=== PATIENT | female | born 1970 | race Caucasian/White ===

== ENCOUNTER 2017-07-18 09:42 | Emergency (ER) | payer OTHER ==
--- NOTE | 2017-07-18 10:18 | EDPHY ---
H & P Stated Complaint: had bad cold x 1 wk w/cough; feels SOB - Personal History LMP (Females 10-55): Hysterectomy Current Tetanus Diphtheria and Acellular Pertussis (TDAP): Yes - Social History Smoking Status: Never smoked Time Seen by Provider: 07/18/17 10:04 HPI/ROS: CHIEF COMPLAINT: Dyspnea "I just can not catch my breath" HISTORY OF PRESENT ILLNESS: 47-year-old female generally healthy has been experiencing upper respiratory infection like symptoms for the past 1 week, notes that she has been feeling better however since last evening she notes dyspnea feeling that she"can not catch her breath and". No prior history of similar. Nonsmoker. No drug use. No chest pain. No abdominal pain. No syncope or near syncope. REVIEW OF SYSTEMS: A ten point review of systems was performed and is negative with the exception of the items mentioned in the HPI PAST MEDICAL & SURGICAL HISTORY: No history of coronary artery disease or coagulopathy SOCIAL HISTORY: Nonsmoker. No drug use. Works at [employer]. FAMILY HISTORY: no family history of coronary artery disease, sudden unexplained , coagulopathy PHYSICAL EXAM (Prior to examination, patient consented to physical exam, hands were washed and my usual and customary physical exam procedures followed) 1) GENERAL: Well-developed, well-nourished, alert and oriented. Appears to be in no acute distress. 2) HEAD: Normocephalic, atraumatic 3) HEENT: Pupils equal, round, reactive to light bilaterally. Sclera anicteric. Nasopharynx, oropharynx, clear, no lesions. Ears bilaterally with normal tympanic membranes. 4) NECK: Full range of motion, no meningeal signs. No carotid bruit 5) LUNGS: Clear auscultation bilaterally, no wheezes, no rhonchi, no retractions. 6) HEART: Regular rate and rhythm, no murmur, no heave, no gallop. 7) ABDOMEN: No guarding, no rebound, no focal tenderness, negative McBurney's, negative Kohler's, negative Rovsing's, negative peritoneal sign, negative Homans no palpable cord 8) MUSCULOSKELETAL: Moving all extremities, no focal areas of tenderness, no obvious trauma. No peripheral edema or discoloration. 9) BACK: No CVA tenderness, no midline vertebral tenderness, no fluctuance, no step-off, no obvious trauma, no visual or palpable abnormality. 10) SKIN: No rash, no petechiae. 11) Psychiatric: Patient is oriented X 3, there is no agitation. DIFFERENTIAL DIAGNOSIS: In no particular include but limited to pneumonia, pneumothorax, pulmonary embolus, GA (Fransisco,Charly Aurea) Constitutional: Initial Vital Signs Temperature (C) 36.7 C 07/18/17 09:45 Heart Rate 69 07/18/17 09:45 Respiratory Rate 18 07/18/17 09:45 Blood Pressure 111/71 07/18/17 09:45 O2 Sat (%) 98 07/18/17 09:45 O2 Delivery Mode Room Air Allergies/Adverse Reactions: acetaminophen [From Percocet] Allergy (Mild, Verified 07/18/17 09:45) GI oxycodone [From Percocet] Allergy (Mild, Verified 07/18/17 09:45) GI Sulfa (Sulfonamide Antibiotics) Allergy (Mild, Verified 07/18/17 09:45) GI tetracycline Allergy (Mild, Verified 07/18/17 09:45) GI Home Medications: Medication Instructions Recorded Albuterol [Proventil Inhaler HFA 1 - 2 puffs IH Q4PRN PRN #1 mdi 07/18/17 (*)] predniSONE [Prednisone] 20 mg PO DAILY #9 tablet 07/18/17 Medical Decision Making - Diagnostics Imaging Results: Imaging Impressions Chest X-Ray 07/18/17 10:14 Impression: Normal chest x-ray. ED Course/Re-evaluation: 10:17 a.m.: Care of patient under supervision of secondary supervising physician Dr Pena . 1 p.m.: Patient was re-evaluated with serial examinations. Most recent exam at this time She is given a DuoNeb treatment and notes improvement in her symptoms. She is also given Afrin nasal spray noting difficulty breathing through her nose. This provided temporary relief as well. I reviewed her laboratory studies. I think that GA is less than likely in the presence of normal sinus EKG, normal troponin and symptomatic for greater than 8 hr. I think that pulmonary embolus is less than likely in this patient in the presence of low to medium risk factors, negative D-dimer which I think adequately excludes pulmonary embolus. I do not think that CT imaging is indicated. In addition her chest x-ray shows no infiltrate. She remains with normal saturations, breathing comfortably, speaking full sentences. I discussed her case with Dr. Faizan Pena in the ER. Plan will be discharge home with albuterol and prednisone. Patient feels comfortable with this plan. Usual and customary discharge precautions and instructions provided. (Charly Moody) I did not see this patient while she was in the emergency. However her care was discussed with the PA while the patient was in the department. I agree with treatment plan and management (Faizan Pena) - Data Points Laboratory Results: Laboratory Results 07/18/17 10:24 07/18/17 10:24 07/18/17 07/18/17 07/18/17 10:24 10:24 10:24 WBC RBC Hgb Hct MCV MCH MCHC RDW Plt Count MPV Neut % (Auto) Lymph % (Auto) [place] % (Auto) Eos % (Auto) Baso % (Auto) Nucleat RBC Rel Count Absolute Neuts (auto) Absolute Lymphs (auto) Absolute Monos (auto) Absolute Eos (auto) Absolute Basos (auto) Absolute Nucleated RBC Immature Gran % Immature Gran # D-Dimer < 0.27 ug/mLFEU ug/mLFEU (0.00-0.50) Sodium 141 mEq/L mEq/L (135-145) Potassium 4.3 mEq/L mEq/L (3.5-5.2) Chloride 107 mEq/L mEq/L (97-110) Carbon Dioxide 20 mEq/l L mEq/l (22-31) Anion Gap 14 mEq/L mEq/L (8-16) BUN 12 mg/dL mg/dL (7-23) Creatinine 0.5 mg/dL L mg/dL (0.6-1.0) Estimated GFR > 60 Glucose 88 mg/dL mg/dL (70-100) Calcium 8.8 mg/dL mg/dL (8.5-10.4) Troponin I < 0.012 ng/mL ng/mL (0.000-0.034) Beta HCG, Qual NEGATIVE 07/18/17 10:24 WBC 5.42 10^3/uL 10^3/uL (3.80-9.50) RBC 4.62 10^6/uL 10^6/uL (4.18-5.33) Hgb 14.8 g/dL g/dL (12.6-16.3) Hct 42.8 % % (38.0-47.0) MCV 92.6 fL fL (81.5-99.8) MCH 32.0 pg pg (27.9-34.1) MCHC 34.6 g/dL g/dL (32.4-36.7) RDW 13.1 % % (11.5-15.2) Plt Count 178 10^3/uL 10^3/uL (150-400) MPV 10.5 fL fL (8.7-11.7) Neut % (Auto) 58.4 % % (39.3-74.2) Lymph % (Auto) 31.9 % % (15.0-45.0) [place] % (Auto) 7.4 % % (4.5-13.0) Eos % (Auto) 1.7 % % (0.6-7.6) Baso % (Auto) 0.4 % % (0.3-1.7) Nucleat RBC Rel Count 0.0 % % (0.0-0.2) Absolute Neuts (auto) 3.17 10^3/uL 10^3/uL (1.70-6.50) Absolute Lymphs (auto) 1.73 10^3/uL 10^3/uL (1.00-3.00) Absolute Monos (auto) 0.40 10^3/uL 10^3/uL (0.30-0.80) Absolute Eos (auto) 0.09 10^3/uL 10^3/uL (0.03-0.40) Absolute Basos (auto) 0.02 10^3/uL 10^3/uL (0.02-0.10) Absolute Nucleated RBC 0.00 10^3/uL 10^3/uL (0-0.01) Immature Gran % 0.2 % % (0.0-1.1) Immature Gran # 0.01 10^3/uL 10^3/uL (0.00-0.10) D-Dimer Sodium Potassium Chloride Carbon Dioxide Anion Gap BUN Creatinine Estimated GFR Glucose Calcium Troponin I Beta HCG, Qual Medications Given: Discontinued Medications Albuterol/Ipratropium (Duoneb) 3 ml IH EDNOW ONE Stop: 07/18/17 11:23 Last Admin: 07/18/17 11:26 Dose: 3 ml Oxymetazoline HCl (Afrin Nasal [place]) 2 sprays EACHNARE EDNOW ONE Stop: 07/18/17 12:19 Last Admin: 07/18/17 12:29 Dose: 2 spray Prednisone (Prednisone) 60 mg PO EDNOW ONE Stop: 07/18/17 12:37 Last Admin: 07/18/17 12:43 Dose: 60 mg Departure - Departure Disposition: Home, Routine, Self-Care Clinical Impression: Dyspnea Qualifiers: Dyspnea type: unspecified Qualified Code(s): R06.00 - Dyspnea, unspecified Condition: Good Instructions: Dyspnea (ED) Additional Instructions: Seek medical attention if you develop chest pain, if you develop new or worsening shortness of breath, or any other symptoms that concern you. Referrals: Adilia Newman MD [[facility] [place]] - 2-3 days, call for appt. Prescriptions: Albuterol [Proventil Inhaler HFA (*)] 1 - 2 puffs IH Q4PRN PRN #1 mdi PRN Reason: Cough, Moderate predniSONE [Prednisone] 20 mg PO DAILY #9 tablet
--- NOTE | 2017-07-18 10:26 | CPEKG ---
Heart Rate: 62 RR Interval: 968 P-R Interval: 152 QRSD Interval: 80 QT Interval: 444 QTC Interval: 451 P [place]: 44 QRS [place]: 26 T Wave [place]: 37 EKG Severity - BORDERLINE ECG - EKG Impression: SINUS RHYTHM EKG Impression: LOW VOLTAGE THROUGHOUT Electronically Signed By: Faizan Pena 18-Jul-2017 17:03:53
[2017-07-18 10:31] LABS: PLATELET COUNT 178 10^3/uL (150-400)
[2017-07-18] MEDS ORDERED: IPRATROPIUM/ALBUTEROL 3 ML DEYVIAL IH ONE (11:22)
[2017-07-18] MEDS ORDERED: OXYMETAZOLINE 30 ML NASAL SPRAY EACHNARE ONE (12:18)
[2017-07-18] MEDS ORDERED: predniSONE 20 MG TAB PO ONE (12:36)
[2017-07-18 13:24] VITALS: BP 126/75; PULSE 77; RESP 20; TEMP 98.2; O2SAT 96
== END 2017-07-18 13:24 | disposition home or self-care (01) ==
DX: R06.00 Dyspnea, unspecified (principal)
CPT/HCPCS: J7512

== ENCOUNTER 2017-11-13 11:09 | Emergency (ER) | payer OTHER ==
[2017-11-13] MEDS ORDERED: HYDROCODONE/APAP 5/325 TAB PO ONE (12:41)
[2017-11-13] MEDS ORDERED: IBUPROFEN 600 MG TAB PO ONE (12:41)
[2017-11-13] MEDS ORDERED: LIDOCAINE 4%/MENTHOL 1% PATCH TD ONE (12:42)
--- NOTE | 2017-11-13 12:42 | EDPHY ---
H & P Time Seen by Provider: 11/13/17 12:24 HPI/ROS: CHIEF COMPLAINT: Back injury HISTORY OF PRESENT ILLNESS: Yesterday was carrying boxes down the stairs and slipped landing on her back directly on the stairs. She fell down a couple of stairs but did not hit her head and did not lose consciousness. Pain is severe today and worse with any movement. It is midline and not associated with numbness or tingling in feet or incontinence. She went to urgent care apparently had microscopic hematuria and was referred here. She denies gross hematuria. REVIEW OF SYSTEMS: Eye: no change in vision ENT: no sore throat Cardiac: no chest pain or syncope Pulmonary: no cough or SOB Abdomen: no vomiting, diarrhea; ongoing intermittent abdominal pain Musculoskeletal: HPI Skin: Bruising on her back Neuro: no headache Constitutional: no fever : no hematuria A comprehensive 10 point review of systems is otherwise negative aside from elements mentioned in the history of present illness. PAST MEDICAL HISTORY: Hysterectomy, ongoing abdominal symptoms with negative EGD on Tuesday. Social history: Here with fiancee General Appearance: Alert and conversant, cooperative. Eyes: No scleral icterus. ENT, Mouth: Normal mucous membranes. Respiratory: Normal respiratory effort, breath sounds equal, lungs are clear to auscultation. Cardiovascular: Regular rate and rhythm. Gastrointestinal: Abdomen is soft and non tender. Nontender over the spleen. Neurological: Alert, face symmetric, normal motor and sensory in extremities. Toes downgoing and no clonus. Skin: Bruising over the upper mid lumbar spine. Musculoskeletal: No extremity bony tenderness, pelvis is stable, lower thoracic and upper lumbar spinal tenderness. She does not have any CVA tenderness or tenderness over the flank. Psychiatric: Not agitated. Emergency Department course/MDM: Not hypotensive and no gross hematuria, nontender over the flank, I think acute renal injury is unlikely. Lumbar and thoracic spine x-rays discussed and consented. Oral ibuprofen, hydrocodone which she can take and has previously, lidocaine patch. 1325: Results reviewed with the patient. Patient referred back to her primary care provider. She can get consultation with service specialist if needed through her PCP. Warned will take 6 weeks typically for fracture healing. Pain may last longer than that. Patient is ambulatory at discharge with adequate pain control. Smoking Status: Never smoked Constitutional: Initial Vital Signs Temperature (C) 36.6 C 11/13/17 11:28 Heart Rate 70 11/13/17 11:28 Respiratory Rate 16 11/13/17 11:28 Blood Pressure 120/74 11/13/17 11:28 O2 Sat (%) 93 11/13/17 11:28 O2 Delivery Mode Room Air Allergies/Adverse Reactions: acetaminophen [From Percocet] Allergy (Mild, Verified 11/13/17 11:33) GI oxycodone [From Percocet] Allergy (Mild, Verified 11/13/17 11:33) GI Sulfa (Sulfonamide Antibiotics) Allergy (Mild, Verified 11/13/17 11:33) GI tetracycline Allergy (Mild, Verified 11/13/17 11:33) GI Home Medications: Medication Instructions Recorded Albuterol [Proventil Inhaler HFA 1 - 2 puffs IH Q4PRN PRN #1 mdi 07/18/17 (*)] predniSONE [Prednisone] 20 mg PO DAILY #9 tablet 07/18/17 Hydrocodone/APAP 5/325 [[place] 1 tab PO Q4-6PRN PRN #11 tab 11/13/17 5/325] Lidocaine [Lidoderm] 1 each TP DAILY #7 adh..patch 11/13/17 Omeprazole Magnesium 11/13/17 Medical Decision Making - Diagnostics Imaging Results: Imaging Impressions Lumbar Spine X-Ray 11/13/17 12:41 Impression: Thoracic spine negative for fracture with degenerative changes seen. Lumbar Spine, 2 views History: Pain, post trauma Findings: Lumbar alignment is anatomic. Disk spaces are well maintained. Facet hypertrophy extends from L3-L4 to the L5-S1 level. No fracture is identified. Impression: Negative for fracture.. ADDENDUM: 11/13/17 1322 Impression: Left spinous process fractures, Dr. Street is aware of this finding. Thoracic Spine X-Ray 11/13/17 12:41 Impression: Thoracic spine negative for fracture with degenerative changes seen. Lumbar Spine, 2 views History: Pain, post trauma Findings: Lumbar alignment is anatomic. Disk spaces are well maintained. Facet hypertrophy extends from L3-L4 to the L5-S1 level. No fracture is identified. Impression: Negative for fracture.. ADDENDUM: 11/13/17 1322 Impression: Left spinous process fractures, Dr. Street is aware of this finding. Imaging: Discussed imaging studies w/ inbound call center agent Radiologist, I viewed and interpreted images myself Differential Diagnosis: Differential considered including but not limited to vertebral fracture, spinous process fracture, flank contusion, renal injury, spinal cord injury. - Data Points Medications Given: Discontinued Medications Hydrocodone Bitart/Acetaminophen ([place] 5/325) 1 tab PO EDNOW ONE Stop: 11/13/17 12:42 Last Admin: 11/13/17 13:28 Dose: 1 tab Ibuprofen (Motrin) 600 mg PO EDNOW ONE Stop: 11/13/17 12:42 Last Admin: 11/13/17 13:28 Dose: 600 mg Miscellaneous Medication (Icy Hot Lidocaine/Menthol 4%/1% Patch) 1 patch TD EDNOW ONE Stop: 11/13/17 12:43 Last Admin: 11/13/17 13:29 Dose: 1 patch Departure - Departure Disposition: Home, Routine, Self-Care Clinical Impression: Fracture of spinous process of lumbar vertebra Qualifiers: Encounter type: initial encounter Fracture type: closed Qualified Code(s): S32.009A - Unspecified fracture of unspecified lumbar vertebra, initial encounter for closed fracture Condition: Good Instructions: Hydrocodone/Acetaminophen (By mouth), Ibuprofen (By mouth) Referrals: MARKUS CURTIS [Primary Care Provider] - As per Instructions Prescriptions: Hydrocodone/APAP 5/325 [[place] 5/325] 1 tab PO Q4-6PRN PRN #11 tab PRN Reason: For Pain Lidocaine [Lidoderm] 1 each TP DAILY #7 adh..patch
[2017-11-13 14:25] VITALS: BP 121/75
[2017-11-13] MEDS ORDERED: PATCH REMOVAL 1 EA PATCH TD SCH (21:00)
== END 2017-11-13 14:26 | disposition home or self-care (01) ==
DX: S32.009A Unspecified fracture of unspecified lumbar vertebra, initial encounter for closed fracture (principal); W10.8XXA Fall (on) (from) other stairs and steps, initial encounter; Y99.8 Other external cause status; Y93.89 Activity, other specified

== ENCOUNTER → 2017-12-21 | Outpatient (CLI) | payer OTHER | DX: K82.8 Other specified diseases of gallbladder (principal) | CPT/HCPCS: 78227; A9537; J2805 ==

== ENCOUNTER 2018-04-25 18:04 | Observation (INO) | payer OTHER ==
[2018-04-25] MEDS ORDERED: NS 1,000 ML IV ONE (18:28)
--- NOTE | 2018-04-25 18:50 | EDPHY ---
H & P Stated Complaint: l lower abd pain loose stools/colon abcess 2013 ([facility]) Time Seen by Provider: 04/25/18 18:18 HPI/ROS: CHIEF COMPLAINT: Left lower quadrant pain HISTORY OF PRESENT ILLNESS: The patient presents to the ED with complaints of progressive left lower quadrant pain over the past 2 days. The patient reports a prior history of intra-abdominal abscess requiring surgery 4 years ago. The patient believes that she had a per for diverticuli.. Patient states that her symptoms feel similar. She denies any fever or vomiting. She does report nausea. She does report she has been having some loose stool. The patient currently rates her pain is an 8/10. She the states is worsened with movement and palpation. The patient did have a follow-up sigmoidoscopy at some point following her surgery for symptoms of recurrent pain which were negative. She reports her pain today is far worse than the pain she was experiencing at that point time. REVIEW OF SYSTEMS: A comprehensive 10 point review of systems is otherwise negative aside from elements mentioned in the history of present illness. Source: Patient Exam Limitations: No limitations - Personal History LMP (Females 10-55): Hysterectomy Current Tetanus Diphtheria and Acellular Pertussis (TDAP): Yes - Medical/Surgical History Hx Asthma: No Hx Chronic Respiratory Disease: No Hx Diabetes: No Hx Cardiac Disease: No Hx Renal Disease: No Hx Cirrhosis: No Hx Alcoholism: No Hx HIV/AIDS: No Hx Splenectomy or Spleen Trauma: No Other PMH: colon abcess/hysterectomy - Social History Smoking Status: Never smoked - Physical Exam Exam: General Appearance: Alert, no distress Eyes: Pupils equal and round no pallor or injection ENT, Mouth: Mucous membranes moist Respiratory: There are no retractions, lungs are clear to auscultation Cardiovascular: Regular rate and rhythm Gastrointestinal: Tenderness to palpation in the left lower quadrant with mild rebound, no peritoneal signs Neurological: 5/5 strength noted all 4 extremities Skin: Warm and dry, no rashes Musculoskeletal: Neck is supple nontender Extremities: symmetrical, full range of motion Constitutional: Initial Vital Signs Temperature (C) 36.4 C 04/25/18 18:11 Heart Rate 81 04/25/18 18:11 Respiratory Rate 18 04/25/18 18:11 Blood Pressure 126/73 H 04/25/18 18:11 O2 Sat (%) 96 04/25/18 18:11 O2 Delivery Mode Room Air Allergies/Adverse Reactions: acetaminophen [From Percocet] Allergy (Mild, Verified 04/25/18 18:10) GI oxycodone [From Percocet] Allergy (Mild, Verified 04/25/18 18:10) GI Sulfa (Sulfonamide Antibiotics) Allergy (Mild, Verified 04/25/18 18:10) GI tetracycline Allergy (Mild, Verified 04/25/18 18:10) GI Home Medications: Medication Instructions Recorded NK [No Known Home Meds] 04/25/18 Medical Decision Making - Diagnostics Imaging Results: Imaging Impressions Abdomen CT 04/25/18 19:17 Impression: 1. Thickening of the proximal to mid sigmoid colon left iliac fossa just proximal to the bowel anastomotic sutures. This could represent postoperative thickening. If there was previous resection for cancer then recurrence cannot be ruled out. If indicated, consider correlation with sigmoidoscopy at some point. 2. 3 cm fluid collection left lower pelvis with thin catherine. This is adjacent to the mid to distal sigmoid colon. Possibilities include postoperative seroma or lymphocele versus possibility of left adnexal cyst. Chronic abscess is felt to be possible but less likely considering surgery was about 5 years ago by patient history. 3. Small hiatal hernia. Findings discussed with Rigoberto Lyman M.D. at 19:56 hour, 04/25/2018. ED Course/Re-evaluation: The patient presents to the ED with a 2 day history of progressive left lower quadrant pain. The patient does have a history of intra-abdominal abscess from a perforated diverticuli. The patient was noted to have a slight leukocytosis. She has fairly significant tenderness to palpation left lower quadrant. CT scan of the abdomen demonstrates nonspecific findings in the area of her prior surgery. The patient does have a 3 cm fluid collection noted in the left lower pelvis of uncertain significance. The patient did receive a half a mg of Dilaudid in the emergency department. Given the patient's CT findings I did consult with Dr. Nair from General surgery. She is evaluating the patient in the department at 8:45 p.m.. She evaluated the patient will admit her to the hospital for IV antibiotic treatment for presumed colitis. Differential Diagnosis: Differential diagnosis considered includes diverticulitis, perforation, abscess , gastroenteritis - Data Points Laboratory Results: Laboratory Results 04/25/18 19:10 04/25/18 19:10 04/25/18 04/25/1804/25/18 19:13 19:10 19:10 WBC RBC Hgb POC Hgb 17.3 gm/dL H gm/dL (12.6-16.3) Hct POC Hct 51 % H % (38-47) MCV MCH MCHC RDW Plt Count MPV Neut % (Auto) Lymph % (Auto) [place] % (Auto) Eos % (Auto) Baso % (Auto) Nucleat RBC Rel Count Absolute Neuts (auto) Absolute Lymphs (auto) Absolute Monos (auto) Absolute Eos (auto) Absolute Basos (auto) Absolute Nucleated RBC Immature Gran % Immature Gran # POC Sodium 140 mEq/L mEq/L (135-145) Sodium 136 mEq/L mEq/L (135-145) POC Potassium 3.7 mEq/L mEq/L (3.3-5.0) Potassium 4.3 mEq/L mEq/L (3.5-5.2) POC Chloride 102 mEq/L mEq/L (97-110) Chloride 105 mEq/L mEq/L (97-110) Carbon Dioxide 20 mEq/l L mEq/l (22-31) Anion Gap 11 mEq/L mEq/L (6-14) POC BUN 7 mg/dL mg/dL (7-23) BUN 9 mg/dL mg/dL (7-23) Creatinine 0.6 mg/dL mg/dL (0.6-1.0) POC Creatinine 0.6 mg/dL mg/dL (0.6-1.0) Estimated GFR > 60 Glucose 81 mg/dL mg/dL (70-100) POC Glucose 81 mg/dL mg/dL (70-100) Calcium 8.8 mg/dL mg/dL (8.5-10.4) Total Bilirubin 1.1 mg/dL mg/dL (0.1-1.4) Conjugated Bilirubin 0.2 mg/dL mg/dL (0.0-0.5) Unconjugated Bilirubin 0.9 mg/dL mg/dL (0.0-1.1) AST 25 IU/L IU/L (14-46) ALT 28 IU/L IU/L (9-52) Alkaline Phosphatase 62 IU/L IU/L (38-126) Total Protein 7.2 g/dL g/dL (6.3-8.2) Albumin 4.5 g/dL g/dL (3.5-5.0) Lipase 72 IU/L IU/L (23-300) Beta HCG, Qual NEGATIVE 04/25/18 19:10 WBC 11.40 10^3/uL H 10^3/uL (3.80-9.50) RBC 4.71 10^6/uL 10^6/uL (4.18-5.33) Hgb 15.4 g/dL g/dL (12.6-16.3) POC Hgb Hct 46.2 % % (38.0-47.0) POC Hct MCV 98.1 fL fL (81.5-99.8) MCH 32.7 pg pg (27.9-34.1) MCHC 33.3 g/dL g/dL (32.4-36.7) RDW 13.2 % % (11.5-15.2) Plt Count 187 10^3/uL 10^3/uL (150-400) MPV 10.6 fL fL (8.7-11.7) Neut % (Auto) 76.7 % H % (39.3-74.2) Lymph % (Auto) 14.5 % L % (15.0-45.0) [place] % (Auto) 7.3 % % (4.5-13.0) Eos % (Auto) 0.9 % % (0.6-7.6) Baso % (Auto) 0.2 % L % (0.3-1.7) Nucleat RBC Rel Count 0.0 % % (0.0-0.2) Absolute Neuts (auto) 8.75 10^3/uL H 10^3/uL (1.70-6.50) Absolute Lymphs (auto) 1.65 10^3/uL 10^3/uL (1.00-3.00) Absolute Monos (auto) 0.83 10^3/uL H 10^3/uL (0.30-0.80) Absolute Eos (auto) 0.10 10^3/uL 10^3/uL (0.03-0.40) Absolute Basos (auto) 0.02 10^3/uL 10^3/uL (0.02-0.10) Absolute Nucleated RBC 0.00 10^3/uL 10^3/uL (0-0.01) Immature Gran % 0.4 % % (0.0-1.1) Immature Gran # 0.05 10^3/uL 10^3/uL (0.00-0.10) POC Sodium Sodium POC Potassium Potassium POC Chloride Chloride Carbon Dioxide Anion Gap POC BUN BUN Creatinine POC Creatinine Estimated GFR Glucose POC Glucose Calcium Total Bilirubin Conjugated Bilirubin Unconjugated Bilirubin AST ALT Alkaline Phosphatase Total Protein Albumin Lipase Beta HCG, Qual Medications Given: Discontinued Medications Hydromorphone HCl (Dilaudid) 0.5 mg IVP EDNOW ONE Stop: 04/25/18 20:01 Last Admin: 04/25/18 20:06 Dose: 0.5 mg Sodium Chloride (Ns) 1,000 mls @ 0 mls/hr IV EDNOW ONE; Wide Open PRN Reason: Protocol Stop: 04/25/18 18:29 Last Admin: 04/25/18 19:10 Dose: 1,000 mls Point of Care Test Results: Chemistry 04/25/18 19:13 POC Sodium 140 mEq/L mEq/L (135-145) POC Potassium 3.7 mEq/L mEq/L (3.3-5.0) POC Chloride 102 mEq/L mEq/L (97-110) POC BUN 7 mg/dL mg/dL (7-23) POC Creatinine 0.6 mg/dL mg/dL (0.6-1.0) POC Glucose 81 mg/dL mg/dL (70-100) ISTAT H&H 04/25/18 19:13 POC Hgb 17.3 gm/dL H gm/dL (12.6-16.3) POC Hct 51 % H % (38-47) Departure - Departure Disposition: [facility] Acute Clinical Impression: Colitis Abdominal pain Qualifiers: Abdominal location: left lower quadrant Qualified Code(s): R10.32 - Left lower quadrant pain Condition: Good Referrals: CANDACE VIRGEN [Primary Care Provider] - As per Instructions
[2018-04-25 19:19] LABS: PLATELET COUNT 187 10^3/uL (150-400)
[2018-04-25] MEDS ORDERED: IOPAMIDOL (ISOVUE-300) 100 ML BTL ONE (19:21)
[2018-04-25] MEDS ORDERED: HYDROmorphONE/DILAUDID 2 MG/ML INJ IVP ONE (20:00)
[2018-04-25] MEDS ORDERED: HYDROmorphONE/DILAUDID 1 MG/ML INJ ONE (20:03)
[2018-04-25] MEDS ORDERED: PROMETHAZINE HCL 25 MG/ML INJ IVP PRN (20:48)
[2018-04-25] MEDS ORDERED: ONDANSETRON DISINTEGRATING 4 MG TAB PO PRN (20:48)
[2018-04-25] MEDS: ONDANSETRON 4 MG/2 ML VIAL IVP PRN ×2 (20:53→23:16)
[2018-04-25] MEDS ORDERED: FLUCONAZOLE 150 MG TAB PO ONE (20:54)
[2018-04-25] MEDS: D5W 1/2 NS W/ 20 KCl/L 1,000 ML IV SCH (22:42)
[2018-04-26] MEDS: ONDANSETRON 4 MG/2 ML VIAL IVP PRN (05:17)
--- NOTE | 2018-04-26 05:50 | GCON ---
DATE OF CONSULTATION: 04/25/2018 CHIEF COMPLAINT: Left lower quadrant abdominal pain. HISTORY OF PRESENT ILLNESS: The patient is a 47-year-old woman who has a history of a partial sigmoid colectomy almost 4 years ago to the date for diverticulitis with a "lemon-sized abscess." Approximately 1 year after that she had some increased abdominal pain and had a flex sig which was reportedly normal. Today she was at work and had increasing left-sided abdominal pain that felt exactly how she recalls her symptoms 4 years ago. She denies fevers or chills. She has had no appetite today. Today, she has had multiple small caliber stools. No blood in her stool. She has no difficulty with urination. She has not been around sick contacts. She is not nauseated nor has she vomited. She passed flatus this morning. PAST MEDICAL HISTORY: None. PAST SURGICAL HISTORY: As above and hysterectomy. SOCIAL HISTORY: She is currently employed. She has never smoked. ALLERGIES: Percocet, sulfa, tetracycline. HOME MEDICATIONS: None. FAMILY HISTORY: No history of colon cancer. REVIEW OF SYSTEMS: Per HPI. PHYSICAL EXAMINATION: VITAL SIGNS: 36.4, 81, 23/73, 16, 95% on room air. GENERAL: Pleasant woman, appears slightly ill, sitting up on gurney. HEENT: Normocephalic. No gross hearing deficits. Mucous membranes moist. Pupils equal and round. No scleral icterus. LUNGS: Clear to auscultation bilaterally. No increased work of breathing. CARDIAC: Regular rate. ABDOMEN : Bowel sounds present. She is soft. She is tender in the left lower quadrant. There is no rebound or guarding. She has a well-healed midline scar without evidence hernia. MUSCULOSKELETAL: Normal nails. SKIN: Warm and dry. PSYCH: Mood and affect normal. NEURO: Grossly intact. RESULTS REVIEWED: Her white blood cell count is 11,000. Her electrolytes are within normal limits. I personally reviewed the CT images, and she does have inflammation of her sigmoid colon. There is a cystic structure in the lower pelvis distal to the anastomosis. IMPRESSION AND PLAN: The patient is a 47-year-old woman with a history of diverticulitis requiring surgery. She now has new pain in the left lower quadrant with an elevated white count and inflammation on her CT scan. I will admit her to the hospital. She will be n.p.o. except for sips and chips. I will have her on Levaquin and Flagyl. We will watch her closely. We may have GI comment on her colitis. I have also ordered stool studies. /[id number]/MODL MTDD
[2018-04-26 05:51] LABS: PLATELET COUNT 187 10^3/uL (150-400)
[2018-04-26] MEDS ORDERED: NS 1,000 ML IV ONE (08:11)
[2018-04-26] MEDS: D5W 1/2 NS W/ 20 KCl/L 1,000 ML IV SCH (09:25)
--- NOTE | 2018-04-26 10:03 | SOAPPROG ---
SOAP Progress Note Assessment/Plan: Assessment/Plan: 47yo F admitted with LLQ pain, CT with inflammation consistent with colitis Advance to clear liquid diet Levo/Flagyl Leukocytosis improving No flatus, hypoactive BS Stool studies pending Hypotension this am - 1L NS bolus Dispo: inpt until return of bowel function and tolerating diet. Seen c Dr. Nair S: pain feels like it is returning this am, 510. Not passing flatus. Not hungry O: Well-developed well-nourished woman in no acute distress Clear to auscultation bilaterally, no increased work of breathing Cleared regular rate and rhythm Hypoactive bowel sounds throughout, soft, nondistended, tenderness to deep palpation left lower quadrant. No rebound or guarding Mood and affect normal Neuro grossly intact 04/26/18 10:59 Objective: Vital Signs Temp Pulse Resp BP Pulse Ox 36.9 C 75 18 87/51 L 94 04/26/18 09:22 04/26/18 09:22 04/26/18 07:51 04/26/18 09:22 04/26/18 07:51 Laboratory Results 04/26/18 05:36 04/26/18 05:36 04/25/18 04/26/18 04/27/18 05:59 05:59 05:59 Intake Total 1070 Balance 1070 ICD10 Worksheet Patient Problems: Problems Problem Status Onset Abdominal pain Acute Colitis Acute
--- NOTE | 2018-04-26 16:20 | ASMTCMCOM ---
CM Note CM Note Notes: Reviewed chart, pt admitted for lower left quadrant pain, similar to the time she had an abscess. Pt works and lives independently. Anticipate she will dc home when medically stable, CM available for any changes. DC Plan: Independent Date Signed: 04/26/2018 04:19 PM Electronically Signed By:Dana Brasher RN
[2018-04-26] MEDS: ACETAMINOPHEN 325 MG TAB PO PRN (20:23)
[2018-04-26] MEDS ORDERED: ALBUMIN 5% 500 ML IV ONE (23:30)
[2018-04-27] MEDS: D5W 1/2 NS W/ 20 KCl/L 1,000 ML IV SCH (05:48)
[2018-04-27 07:49] VITALS: BP 110/70
--- NOTE | 2018-04-27 08:11 | SOAPPROG ---
SOAP Progress Note Assessment/Plan: Assessment: 47 year old woman admitted for colitis Much improved this am Hungry Can discharge if pain controlled after eating general diet S: Headache - usually resolves with food and rest O Plan: 04/27/18 14:40 Objective: Vital Signs Temp Pulse Resp BP Pulse Ox 37.0 C 67 16 110/70 92 04/27/18 07:48 04/27/18 07:48 04/27/18 07:48 04/27/18 07:48 04/27/18 07:48 Laboratory Results 04/26/18 05:36 04/26/18 05:36 04/26/18 04/27/18 04/28/18 05:59 05:59 05:59 Intake Total 1070 1800 Balance 1070 1800 Physical Exam - Physical Exam General Appearance: WD/WN, alert, no apparent distress EENT: No scleral icterus (R), No scleral icterus (L), No hearing deficit Respiratory: chest non-tender, lungs clear Cardiac/Chest: regular rate, rhythm Abdomen: normal bowel sounds, non-tender, soft, other (No longer tender LLQ) Skin: normal color, warm/dry ICD10 Worksheet Patient Problems: Problems Problem Status Onset Abdominal pain Acute Colitis Acute
[2018-04-27] MEDS: ACETAMINOPHEN 325 MG TAB PO PRN (08:27)
[2018-04-27 08:28] LABS: PLATELET COUNT 153 10^3/uL (150-400)
[2018-04-27] MEDS ORDERED: metroNIDAZOLE 500 MG TAB PO SCH (14:00)
--- NOTE | 2018-04-28 13:03 | GDS ---
PRIMARY ADMISSION DIAGNOSIS: Left lower quadrant pain. SECONDARY DIAGNOSES: Status post partial sigmoid colectomy, history of abdominal abscess. REASON FOR ADMISSION: A 47-year-old female presented to the ER with left lower quadrant pain and was admitted for pain control and treatment. HOSPITAL COURSE: The patient was admitted on 04/25/2018, by Dr. Nair. She was placed on intravenous levofloxacin and metronidazole after CT on this date revealed diffuse sigmoid colitis. She was place d n.p.o. at this time and stool studies were sent, and subsequently returned negative. She had a mild leukocytosis on admission. By 04/26/2018, her leukocytosis began to improve. She had hypoactive rolando l sounds, but her pain was improving. On 04/27/2018, her pain was much improved. She began advancing an oral diet and was switched to p.o. antibiotics. She was appropriate for discharge on this date. DISCHARGE CONDITION: Discharged home in stable condition, tolerating a regular diet, pain controlled , and ambulating independently. MEDICATIONS: The patient was discharged on oral levofloxacin and oral metronidazole and Zofran. DISCHARGE INSTRUCTIONS: The patient given instructions to cautiously advance oral intake and to fini sh the entire course of her antibiotics. She will follow up as needed. Dictated by MALLIKA Rausch student, Dr. Geneva Nair will review this note before signing. /[id number]/MODL
== END 2018-04-27 12:29 | disposition left against medical advice (07) ==
LOC: INTOOBSV 20:46 → F3E 21:54
PROVIDERS: ADMIT Surgery; ATTEND Surgery
DX: R10.32 Left lower quadrant pain (principal); E86.9 Volume depletion, unspecified; D72.829 Elevated white blood cell count, unspecified
CPT/HCPCS: 74177; 96361; 96365; 96375; 96376; 99285; G0378; 82435-PO; 82565-PO; 82947-PO; 84132-PO; 84295-PO; 84520-PO; 85014-PO; J1170; J1956; J2270; J2405; J2550; P9041; Q9967